=== PATIENT | female | born 1965 ===

== ENCOUNTER 2019-04-14 10:50 | Emergency (ER) | payer OTHER ==
[~2019-04-14] VITALS: Ht 157.5 cm; Wt 75.1 kg
[~2019-04-14 10:50] MED LIST: METO25TA35 PO; MONT10TA9 PO
[2019-04-14 10:52] VITALS: BP 141/77
== END 2019-04-14 12:23 | disposition home or self-care (01) ==
LOC: ED 11:53
DX: J00 Acute nasopharyngitis [common cold] (principal); B97.89 Other viral agents as the cause of diseases classified elsewhere; E11.9 Type 2 diabetes mellitus without complications; J45.909 Unspecified asthma, uncomplicated
CPT/HCPCS: 71046; 87081; 87880; 99284

== ENCOUNTER 2020-11-20 13:06 | Emergency (ER) | payer MEDICAID, OTHER ==
[~2020-11-20] VITALS: Ht 157.5 cm; Wt 72.1 kg
[~2020-11-20 13:06] MED LIST changes: +MONT10TA17 PO; -MONT10TA9 PO
[2020-11-20 13:07] VITALS: BP 120/97
== END 2020-11-20 14:10 | disposition home or self-care (01) ==
LOC: ED 14:03
DX: S90.31XA Contusion of right foot, initial encounter (principal); I10 Essential (primary) hypertension; E11.9 Type 2 diabetes mellitus without complications; J45.909 Unspecified asthma, uncomplicated; W22.8XXA Striking against or struck by other objects, initial encounter; Y93.89 Activity, other specified; Y92.009 Unspecified place in unspecified non-institutional (private) residence as the place of occurrence of the external cause; Y99.8 Other external cause status
CPT/HCPCS: 99283